=== PATIENT | female | born 1960 | race African-American/Black ===

== ENCOUNTER 2022-05-18 09:25 | Inpatient (IN) | payer MEDICAID ==
[~2022-05-18] VITALS: Ht 167.6 cm; Wt 59.0 kg
[2022-05-18 10:34] LABS: BASOPHILS % 1.1 % (0.0-2.0); EOSINOPHILS % 1.5 % (0.0-5.0); HEMATOCRIT. 45.9 % (36.0-48.0); HEMOGLOBIN. 14.5 g/dL (12.0-16.0); LYMPHOCYTES % 22.9 % (20.0-50.0); MEAN CORPUSCULAR HEMOGLOBIN 27.9 pg (28.0-32.0); MEAN CORPUSCULAR VOLUME 88.4 fL (81.0-99.0); MEAN PLATELET VOLUME 7.3 fl (7.4-10.4); MONOCYTES % 4.5 % (2.0-8.0); PLATELET 644 x1000/uL (130-400); RED BLOOD CELL COUNT 5.19 mill/uL (4.2-5.4); RED CELL DISTRIBUTION WIDTH 19.2 % (11.6-14.6)
[2022-05-18 10:44] LABS: CHLORIDE 105 mEq/L (98-107)
[2022-05-18 10:53] LABS: ETHANOL BLOOD < 10 mg/dL
[2022-05-18] MEDS ORDERED: NITROGLYCERIN 0.4MG TABLET SL SL PRN (11:30)
[2022-05-18] MEDS ORDERED: ASPIRIN 81MG TABLET PO ONE (11:30)
[2022-05-18] MEDS ORDERED: FUROSEMIDE 20MG TABLET PO ONE (11:30)
[2022-05-18 12:25] LABS: CLARITY URINE CLEAR (CLEAR); COLOR URINE YELLOW (YELLOW); KETONES URINE NEGATIVE (NEGATIVE); LEUKOCYTE ESTERASE URINE NEGATIVE (NEGATIVE); NITRITE URINE NEGATIVE (NEGATIVE); OCCULT BLOOD URINE NEGATIVE (NEGATIVE); PROTEIN URINE 3+ (NEGATIVE); SPECIFIC GRAVITY URINE 1.022 (1.005-1.030)
[2022-05-18 12:43] LABS: *AMPHETAMINES SCREEN URINE NEGATIVE (NEGATIVE); *BARBITURATES SCREEN URINE NEGATIVE (NEGATIVE); *BENZODIAZEPINES SCREEN URINE NEGATIVE (NEGATIVE); *COCAINE SCREEN URINE PRESUMTIVE POSITIVE (NEGATIVE); CANNABINOID URINE SCREEN NEGATIVE (NEGATIVE); METHADONE URINE SCREEN NEGATIVE (NEGATIVE); OPIATES URINE SCREEN NEGATIVE (NEGATIVE); PHENCYCLIDINE URINE SCREEN NEGATIVE (NEGATIVE)
[2022-05-18] MEDS ORDERED: LIDOCAINE HCL 1% 30ML VIAL (10MG/ML) ONE (12:46)
[2022-05-18] MEDS ORDERED: LORAZEPAM 2MG/ML CPJ IV ONE (13:00)
[2022-05-18] MEDS ORDERED: GUAIFENESIN 200MG/10ML SUGAR FREE UDC PO PRN (15:00)
[2022-05-18] MEDS ORDERED: MAGNESIUM/ALUMINUM HYDROXIDE/SIMETHICONE 30ML UDC PO PRN (15:00)
[2022-05-18] MEDS ORDERED: IPRATROPIUM/ALBUTEROL 0.5-3(2.5)MG/3ML NEB HHN PRN (15:00)
[2022-05-18] MEDS ORDERED: HYDROCODONE/ACETAMINOPHEN 5/325MG TABLET PO PRN (15:00)
[2022-05-18] MEDS ORDERED: ACETAMINOPHEN 325MG TABLET PO PRN ×2 (15:00)
[2022-05-18] MEDS ORDERED: ONDANSETRON HCL 4MG/2ML INJ IV PRN (15:00)
[2022-05-18] MEDS ORDERED: HYDRALAZINE 20MG/ML VIAL IV NR (15:45)
[2022-05-18] MEDS ORDERED: DEXTROSE 50% WATER 50ML SYRINGE IV PRN (16:00)
[2022-05-18] MEDS ORDERED: CARVEDILOL 3.125 MG TABLET PO SCH (16:30)
[2022-05-18] MEDS ORDERED: OLANZAPINE 10 MG/VIAL IM ONE (17:00)
[2022-05-18] MEDS: ENOXAPARIN 40MG/0.4ML SYR SUBCUT SCH (17:15)
[2022-05-18] MEDS: LISINOPRIL 5MG TABLET PO SCH (17:15)
[2022-05-18] MEDS: AMLODIPINE 5MG TABLET PO SCH (17:16)
[2022-05-18] MEDS ORDERED: HALOPERIDOL LACTATE 5MG/ML VIAL IM NR (17:30)
[2022-05-18] MEDS ORDERED: NALOXONE HCL 0.4MG/ML VIAL IV PRN (17:30)
[2022-05-18] MEDS: INSULIN LISPRO 100 UNITS/ML SUBCUT SCH ×2 (18:20→21:00)
[2022-05-18] MEDS: CLONIDINE 0.1MG TABLET PO PRN (18:50)
[2022-05-18] MEDS: BLOOD SUGAR DIAGNOSTIC STRIP TEST SCH ×2 (19:17→21:55)
[2022-05-18] MEDS: FUROSEMIDE 40MG/4ML VIAL IV SCH (19:27)
[2022-05-18] MEDS ORDERED: AMLODIPINE 10MG TABLET PO NR (20:00)
[2022-05-18] MEDS ORDERED: LISINOPRIL 10MG TABLET PO NR (20:00)
[2022-05-18] MEDS ORDERED: LORAZEPAM 2MG/ML CPJ IV PRN (20:30)
[2022-05-18 21:23] LABS: PHOSPHORUS 4.4 mg/dL (2.5-4.9)
[2022-05-18 23:00] VITALS: BP 155/100
[2022-05-19] VITALS: BP 159/110
[2022-05-19 04:00] VITALS: BP 163/102
[2022-05-19] MEDS: CLONIDINE 0.1MG TABLET PO PRN (05:07)
[2022-05-19 08:00] VITALS: BP 152/94
[2022-05-19] MEDS: FUROSEMIDE 40MG/4ML VIAL IV SCH ×2 (08:35→16:28)
[2022-05-19] MEDS: PANTOPRAZOLE SODIUM 40 MG/VIAL IV SCH (08:35)
[2022-05-19] MEDS: LISINOPRIL 5MG TABLET PO SCH (08:36)
[2022-05-19] MEDS: BLOOD SUGAR DIAGNOSTIC STRIP TEST SCH ×4 (08:36→20:45)
[2022-05-19] MEDS: ASPIRIN 81MG EC TABLET PO SCH (08:36)
[2022-05-19] MEDS: AMLODIPINE 5MG TABLET PO SCH (08:36)
[2022-05-19] MEDS: INSULIN LISPRO 100 UNITS/ML SUBCUT SCH ×4 (08:37→20:45)
[2022-05-19 12:00] VITALS: BP 145/60
[2022-05-19] MEDS ORDERED: ASPI-1406 PO (12:27)
[2022-05-19] MEDS ORDERED: LISI20TA31 PO (12:27)
[2022-05-19] MEDS ORDERED: SPIR25TA6 PO (12:27)
[2022-05-19] MEDS ORDERED: HYDR100T31 PO (12:27)
[2022-05-19] MEDS ORDERED: ATOR10TA69 PO (12:27)
[2022-05-19] MEDS ORDERED: AMLO10TA80 PO (12:27)
[2022-05-19] MEDS ORDERED: MIRT45TA83 PO (12:27)
[2022-05-19] MEDS ORDERED: CARV25TA47 PO (12:27)
[2022-05-19] MEDS ORDERED: METF-414 PO (12:27)
[2022-05-19] MEDS ORDERED: POTA-79 PO (12:27)
[2022-05-19] MEDS ORDERED: ALBU18HF2 (12:27)
[2022-05-19] MEDS ORDERED: FURO40TA5 PO (12:27)
[2022-05-19] MEDS ORDERED: MONT-39 PO (12:27)
[2022-05-19 16:00] VITALS: BP 151/92
[2022-05-19] MEDS: ENOXAPARIN 40MG/0.4ML SYR SUBCUT SCH (16:29)
[2022-05-19] MEDS ORDERED: IPRATROPIUM BROMIDE (0.02%) 0.5MG/2.5ML NEB HHN PRN (17:15)
[2022-05-19] MEDS ORDERED: ALBUTEROL (0.083%) 2.5MG/3ML NEB HHN PRN (17:15)
[2022-05-19 20:00] VITALS: BP 120/79
[2022-05-20] VITALS: BP 132/81
[2022-05-20 04:00] VITALS: BP 148/95
[2022-05-20 08:00] VITALS: BP 163/113
[2022-05-20] MEDS: INSULIN LISPRO 100 UNITS/ML SUBCUT SCH ×3 (08:08→16:28)
[2022-05-20] MEDS: ASPIRIN 81MG EC TABLET PO SCH (08:09)
[2022-05-20] MEDS: BLOOD SUGAR DIAGNOSTIC STRIP TEST SCH ×3 (08:09→16:28)
[2022-05-20] MEDS: FUROSEMIDE 40MG/4ML VIAL IV SCH ×2 (08:09→16:28)
[2022-05-20] MEDS: PANTOPRAZOLE SODIUM 40 MG/VIAL IV SCH (08:09)
[2022-05-20 08:13] LABS: BASOPHILS % 0.7 % (0.0-2.0); EOSINOPHILS % 1.7 % (0.0-5.0); HEMATOCRIT. 45.9 % (36.0-48.0); HEMOGLOBIN. 14.8 g/dL (12.0-16.0); LYMPHOCYTES % 21.6 % (20.0-50.0); MEAN CORPUSCULAR HEMOGLOBIN 28.4 pg (28.0-32.0); MEAN CORPUSCULAR VOLUME 87.8 fL (81.0-99.0); MEAN PLATELET VOLUME 7.6 fl (7.4-10.4); MONOCYTES % 9.6 % (2.0-8.0); NEUTROPHILS % 66.4 % (40.0-76.0); PLATELET 612 x1000/uL (130-400); RED BLOOD CELL COUNT 5.23 mill/uL (4.2-5.4); RED CELL DISTRIBUTION WIDTH 19.4 % (11.6-14.6)
[2022-05-20] MEDS ORDERED: LISINOPRIL 10MG TABLET PO SCH (09:00)
[2022-05-20] MEDS ORDERED: AMLODIPINE 10MG TABLET PO SCH (09:00)
[2022-05-20 09:21] LABS: CHLORIDE 100 mEq/L (98-107)
[2022-05-20 09:33] LABS: HDL CHOLESTEROL 88 mg/dL (40-59); LDL CHOLESTEROL 119 mg/dL (5-100); PHOSPHORUS 4.3 mg/dL (2.5-4.9)
[2022-05-20] MEDS ORDERED: SPIRONOLACTONE 25MG TABLET PO SCH (10:00)
[2022-05-20 12:00] VITALS: BP 101/56
[2022-05-20 12:43] VITALS: BP 123/55
[2022-05-20] MEDS ORDERED: AMLO10TA80 PO (14:05)
[2022-05-20] MEDS ORDERED: SPIR25TA6 PO (14:05)
[2022-05-20] MEDS ORDERED: FURO40TA5 PO (14:05)
[2022-05-20] MEDS ORDERED: LISI20TA31 PO (14:05)
[2022-05-20] MEDS ORDERED: METF-414 PO (14:05)
[2022-05-20] MEDS ORDERED: ATOR10TA69 PO (14:05)
[2022-05-20] MEDS ORDERED: ASPI-1406 PO (14:05)
[2022-05-20 16:00] VITALS: BP 149/96
[2022-05-20] MEDS: ENOXAPARIN 40MG/0.4ML SYR SUBCUT SCH (16:28)
[2022-05-20] MEDS ORDERED: MIRTAZAPINE 15MG TABLET PO SCH (21:00)
== END 2022-05-20 17:50 | disposition home or self-care (01) | DRG 194 ==
LOC: ER 09:42 → EDBEDREQ 17:07 → EDBEDREQTM 17:07 → 7WST 05-19 00:07
PROVIDERS: ADMIT Internal Medicine; ATTEND Internal Medicine
PROC: 02HV33Z Insertion of Infusion Device into Superior Vena Cava, Percutaneous Approach (ICD-10-PCS; principal; 2022-05-18)
PROC: B548ZZA Ultrasonography of Superior Vena Cava, Guidance (ICD-10-PCS; 2022-05-18)
DX: I11.0 Hypertensive heart disease with heart failure (principal); J96.00 Acute respiratory failure, unspecified whether with hypoxia or hypercapnia; E44.1 Mild protein-calorie malnutrition; E11.65 Type 2 diabetes mellitus with hyperglycemia; D75.839 Thrombocytosis, unspecified; F14.10 Cocaine abuse, uncomplicated; I08.1 Rheumatic disorders of both mitral and tricuspid valves; I50.23 Acute on chronic systolic (congestive) heart failure; I16.0 Hypertensive urgency; I44.4 Left anterior fascicular block; R74.01 Elevation of levels of liver transaminase levels; R79.89 Other specified abnormal findings of blood chemistry; Z79.82 Long term (current) use of aspirin; I25.2 Old myocardial infarction; Z68.21 Body mass index [BMI] 21.0-21.9, adult; Z79.899 Other long term (current) drug therapy
CPT/HCPCS: 36415; 36573; 71045; 80053; 80061; 80305; 80320; 81003; 82962; 83036; 83735; 83880; 84100; 84484; 85025; 85379; 93005; 93306; 93970; 99291; C1725; C9113; J0360; J1630; J1650; J1815; J1940; J2060; J3490; A4315; G0480

== ENCOUNTER 2022-05-30 13:03 | Emergency (ER) | payer MEDICAID ==
[~2022-05-30] VITALS: Ht 157.5 cm; Wt 60.0 kg
[~2022-05-30 13:03] MED LIST: ALBU18HF2; AMLO10TA80 PO; ASPI-1406 PO; ATOR10TA69 PO; FURO40TA5 PO; LISI20TA31 PO; METF-414 PO; MIRT45TA83 PO; MONT-39 PO; POTA-79 PO; SPIR25TA6 PO
[2022-05-30 13:09] VITALS: BP 146/74
== END 2022-05-30 18:55 | disposition left against medical advice (07) ==
LOC: ER 13:03
DX: M54.59 Other low back pain (principal); F14.10 Cocaine abuse, uncomplicated; E11.9 Type 2 diabetes mellitus without complications; I10 Essential (primary) hypertension
CPT/HCPCS: 99283